=== PATIENT | female | born 1955 | race Caucasian/White ===

== ENCOUNTER 2023-09-20 15:51 | Inpatient (IN) | payer OTHER ==
[~2023-09-20] VITALS: Ht 167.6 cm; Wt 129.7 kg
[2023-09-20 15:59] VITALS: BP_SYST 139; PULSE 90; RESP 20; TEMP 97.8; O2SAT 92
[2023-09-20 16:40] LABS: BASOPHILS # (AUTO) 0.3 K/uL (0.0-0.2); BASOPHILS % (AUTO) 2.2 % (0.0-2.0); EOSINOPHILS # (AUTO) 0.1 K/uL (0.0-0.4); EOSINOPHILS % (AUTO) 0.6 % (0.0-4.0); HEMATOCRIT 44.1 % (36-48); HEMOGLOBIN 14.5 g/dL (12.0-16.0); LYMPHOCYTES # (AUTO) 1.2 K/uL (1.0-5.5); LYMPHOCYTES % (AUTO) 10.6 % (20.5-51.5); MEAN CORPUSCULAR HEMOGLOBIN 27 pg (27-31); MEAN CORPUSCULAR HGB CONC 33 % (32-36); MEAN CORPUSCULAR VOLUME 83 fL (79.0-98.0); MONOCYTES # (AUTO) 0.7 K/uL (0.0-1.0); MONOCYTES % (AUTO) 6.2 % (1.7-9.3); NEUTROPHILS # (AUTO) 9.3 K/uL (1.8-7.7); NEUTROPHILS % (AUTO) 80.4 % (40.0-70.0); PLATELET COUNT (AUTO) 251 K/uL (130-430); RED BLOOD CELL COUNT(AUTO) 5.34 MIL/uL (4.2-6.2); RED CELL DISTRIBUTION WIDTH 17.2 % (9.0-15.0); WHITE BLOOD COUNT (AUTO) 11.6 K/uL (4.8-10.8)
[2023-09-20 16:53] LABS: ANION GAP 6 (5-15); CALCIUM 9.4 mg/dL (8.4-11.0); CARBON DIOXIDE 33 mmol/L (23-29); CHLORIDE 104 mmol/L (98-107); CREATININE 0.92 mg/dL (0.55-1.30); GFR AFRICAN AMERICAN 78 mL/min (>90); GLUCOSE 122 mg/dL (74-106); POTASSIUM 4.6 mmol/L (3.5-5.1); SODIUM SERUM 143 mmol/L (136-145); UREA NITROGEN, BLOOD 12 mg/dL (8-21)
[2023-09-20] MEDS: IPRATROPIUM/ALBUTEROL SULFATE 3 ML AMPUL.NEB (DUONEB) INH ONE ×2 (16:57→19:05)
[2023-09-20] MEDS: methylPREDNISolone SOD SUCC/PF 62.5 MG/ML VIAL IVP ONE (17:36)
[2023-09-20] MEDS ORDERED: iohexoL 350 mgI/mL, 100 ML INFUS..BTL IV ONE (18:03)
[2023-09-20 18:22] LABS: GFR NON AFRICAN-AMERICAN 65 mL/min (>90)
[2023-09-20] MEDS: ONDANSETRON HCL 4 MG/2 ML VIAL IVP ONE (19:23)
[2023-09-20] MEDS: MORPHINE 2 MG/ML INJ. SYRINGE IVP ONE (19:23)
[2023-09-20 20:21] LABS: BLOOD GAS HCO3 27.2 mmol/L (21.0-27.0); BLOOD GAS PCO2 47.6 mmHg (35.0-45.0); BLOOD GAS PH 7.375 (7.350-7.450); BLOOD GAS PO2 59.8 mmHg (75.0-100.0)
[2023-09-20 20:22] LABS: ABG O2 SAT% ESTIMATE 90.2 % (94.0-100.0); ALLEN'S TEST POSITIVE (P); BLOOD GAS BASE EXCESS 1.3 mmol/L (-3.0-3.0)
[2023-09-20 21:21] LABS: ABG O2 SAT% ESTIMATE 96.3 % (94.0-100.0); ALLEN'S TEST POSITIVE (P); BLOOD GAS BASE EXCESS -0.9 mmol/L (-3.0-3.0); BLOOD GAS HCO3 24.5 mmol/L (21.0-27.0); BLOOD GAS PCO2 43.2 mmHg (35.0-45.0); BLOOD GAS PH 7.371 (7.350-7.450); BLOOD GAS PO2 86.6 mmHg (75.0-100.0)
[2023-09-20 23:45] VITALS: O2SAT 94
[2023-09-20] MEDS: IPRATROPIUM/ALBUTEROL SULFATE 3 ML AMPUL.NEB (DUONEB) INH SCH (23:54)
[2023-09-21] VITALS (12 sets, daily range): BP systolic 103–139; PULSE 69–85; RESP 14–20; TEMP 97.7–98.6; O2SAT 90–99
[2023-09-21] MEDS ORDERED: FLUT1BLS12 INH (01:56)
[2023-09-21] MEDS ORDERED: ALBMDI INH (01:56)
[2023-09-21] MEDS ORDERED: DABI150C PO (01:56)
[2023-09-21] MEDS ORDERED: ROSU40TA PO (01:56)
[2023-09-21] MEDS ORDERED: BISO5TAB15 PO (01:56)
[2023-09-21] MEDS ORDERED: ATRMDI INH (01:56)
[2023-09-21] MEDS: ACETAMINOPHEN 500 MG TABLET PO PRN (06:28)
[2023-09-21 06:29] LABS: BASOPHILS % (AUTO) 0.1 % (0.0-2.0); HEMATOCRIT 44.6 % (36-48); HEMOGLOBIN 14.5 g/dL (12.0-16.0); LYMPHOCYTES # (AUTO) 0.8 K/uL (1.0-5.5); LYMPHOCYTES % (AUTO) 11.3 % (20.5-51.5); MEAN CORPUSCULAR HEMOGLOBIN 27 pg (27-31); MEAN CORPUSCULAR HGB CONC 33 % (32-36); MEAN CORPUSCULAR VOLUME 83 fL (79.0-98.0); MONOCYTES # (AUTO) 0.1 K/uL (0.0-1.0); MONOCYTES % (AUTO) 1.1 % (1.7-9.3); NEUTROPHILS # (AUTO) 6.6 K/uL (1.8-7.7); NEUTROPHILS % (AUTO) 87.5 % (40.0-70.0); PLATELET COUNT (AUTO) 214 K/uL (130-430); WHITE BLOOD COUNT (AUTO) 7.5 K/uL (4.8-10.8)
[2023-09-21 06:44] LABS: ALBUMIN 2.8 g/dL (3.4-4.8); CALCIUM 9.1 mg/dL (8.4-11.0); CREATININE 0.82 mg/dL (0.55-1.30); POTASSIUM 4.6 mmol/L (3.5-5.1); TOTAL BILIRUBIN 0.5 mg/dL (0.0-1.0)
[2023-09-21] MEDS ORDERED: HEPARIN SODIUM,PORCINE 5,000 UNITS/ML VIAL IVP SCH (09:00)
[2023-09-21] MEDS: BUDESONIDE 0.5 MG/2 ML AMPUL.NEB INH ONE (10:45)
[2023-09-21] MEDS: ATENOLOL 50 MG TABLET (TENORMIN) PO ONE (11:04)
[2023-09-21] MEDS: DABIGATRAN ETEXILATE MESYLATE 75 MG CAPSULE PO ONE (11:05)
[2023-09-21] MEDS ORDERED: ROSUVASTATIN CALCIUM 5 MG/TAB (CRESTOR) PO SCH (11:30)
[2023-09-21] MEDS: FUROSEMIDE 40 MG TABLET PO ONE (13:50)
[2023-09-21] MEDS: METHYLPREDNISOLONE SOD SUCC 40 MG/ML VIAL IVP ONE (13:50)
[2023-09-21] MEDS: ACETYLCYSTEINE 10% 4 ML VIAL (RT) INH PRN (17:22)
[2023-09-21] MEDS: METHYLPREDNISOLONE SOD SUCC 40 MG/ML VIAL IVP SCH (18:05)
[2023-09-21] MEDS: BUDESONIDE 0.5 MG/2 ML AMPUL.NEB INH SCH (20:18)
[2023-09-21] MEDS ORDERED: METHYLPREDNISOLONE SOD SUCC 40 MG/ML VIAL IVP SCH (21:00)
[2023-09-21] MEDS: guaiFENesin ER 600 MG TAB PO SCH (21:17)
[2023-09-21] MEDS: PRADAXA 150 MG PO SCH (21:18)
[2023-09-21] MEDS ORDERED: ZOLPIDEM TARTRATE 5 MG TABLET PO PRN (22:00)
[2023-09-22] MEDS ORDERED: ATENOLOL 50 MG TABLET (TENORMIN) PO SCH (09:00)
[2023-09-22] MEDS ORDERED: ROSUVASTATIN 10 MG TAB PO SCH (09:00)
== END 2023-09-21 23:57 | disposition short-term general hospital (02) | DRG 189 ==
LOC: SED 15:51 → STU 22:40
PROVIDERS: ADMIT Student in an Organized Health Care Education/Training Program; ATTEND Student in an Organized Health Care Education/Training Program
DX: J96.01 Acute respiratory failure with hypoxia (principal); J44.1 Chronic obstructive pulmonary disease with (acute) exacerbation; I48.20 Chronic atrial fibrillation, unspecified; Z68.42 Body mass index [BMI] 45.0-49.9, adult; Z20.822 Contact with and (suspected) exposure to COVID-19; E66.01 Morbid (severe) obesity due to excess calories; Z88.8 Allergy status to other drugs, medicaments and biological substances; Z79.899 Other long term (current) drug therapy; F17.200 Nicotine dependence, unspecified, uncomplicated; R91.1 Solitary pulmonary nodule; R73.03 Prediabetes
CPT/HCPCS: 36415; 36600; 71045; 71275; 80048; 80053; 82803; 82948; 83037; 83880; 84484; 85025; 93005; 94070; 94640; 94760; 96374; 96375; 99291; G0378; J1030; J2270; J2405; J2930; J7608; J7626; Q9967